=== PATIENT | female | born 2000 | race Caucasian/White ===

== ENCOUNTER 2024-12-28 08:49 | Outpatient (AMB) | payer MEDICAID, SELFPAY ==
--- NOTE | 2024-12-28 08:53 | AMB.OBINITIA ---
Vital Signs 12/28/24 09:01 Height 1.68 m Height Method Stated Weight 111.697 kg Weight Measurement Method Standing Scale BMI 39.7 BP 131/85 H Blood Pressure Source Automatic Cuff Blood Pressure Location Left Upper Arm Position Sitting Respiration 18 Pulse 90 Pulse Source Monitor Temp 97.2 F Temp Source Oral Pulse Oximetry (%) 97 Oxygen Delivery Method Room Air Allergies/Home Meds Allergies & Medications Allergies latex Allergy (Verified 12/28/24 09:02) SKIN REACTIONS Medication Reconciliation ibuprofen 600 mg tablet 600 mg PO TID PRN pain #30 tabs 10/31/22 [Rx Confirmed 12/28/24] vitamin-ferrous fumarate 28 mg iron-folic acid 800 mcg tablet ( Vitamins with Minerals) 1 tab PO QDAY #60 tabs 12/28/24 [Rx] Intake Visit Data Collection New Patient or Established: Established Patient (seen at [facility] within 3 years) Reason for Visit:: obc Seen by Clinical Staff ONLY (RN/MA): No Youth Care Specialist Required: No Do You Feel Safe at Home: Yes Authorities Contacted: N/A PCP or OBGYN visit in last 3 months: Yes Hx Now: Yes Are you currently on any form of Control: No Last menstrual period: 09/13/24 Pain Present Currently: No Pain Scale Used: Lameida-Kam/Numerical Pain scale:: 0 Smoking Status Smoking Status: Current every day smoker Cessation Counseling Provided: ROMULO was advised that quitting smoking is the single most important factor to protect the health of themselves and their family. Discussed the benefits of quitting smoking with patient. Encouraged patient to quit smoking and provided Cessation assistance materials and resources. Tobacco Use: Cigarette Years smoked: 3 Are you interested in Quitting?: No Immunizations Flu Vaccine in the Last 12 Months: No Flu Vaccine Exclusion Criteria: No Exclusion Criteria Questionnaires Covid-19 Vaccine Questionnaire Has patient been vacinated for Covid-19 Have you been vacinated for Covid-19: Yes PHQ-9 PHQ-2 Over the last 2 weeks, how often have you been bothered by any of the following problems? 1. Little interest or pleasure in doing things: not at all 2. Feeling down, depressed, or hopeless: not at all Total score: 0 PHQ-9 3. Trouble falling or staying asleep, or sleeping too much: Not at all 4. Feeling tired or having little energy: Not at all 5. Poor appetite or overeating: Not at all 6. Feeling bad about yourself - or that you are a failure or have let yourself or your family down: Not at all 7. Trouble concentrating on things, such as reading the newspaper or watching television: Not at all 8. Moving or speaking so slowly that other people could have noticed? - Or the opposite - being so fidgety or restless that you have been moving around a lot more than usual: not at all 9. Thoughts that you would be better off or of hurting yourself in some way: Not at all Total score: 0 If you checked off any problems, how difficult have these problems made it for you to do your work, take care of things at home, or get along with other people?: not difficult at all Source: Developed by Drs. Caleb Hudson, Kari Quiroga, Denver Matias and colleagues, with an educational joan from [employer]. Depression screen completed yes Social History Living Situation History Marital Status: Single Lives With: Family Housing: House Tobacco History Smoking Status: Current every day smoker Second Hand Smoke Exposure: No Alcohol History Alcohol Intake: Never Domestic Abuse History Do You Feel Safe at Home: Yes History of Present Illness HPI Narrative 24-year-old 1 para 0 admitted for OBI. Unplanned but patient and partner are happy. Patient has a history of irregular menses. She removed her Nexplanon in September. Last period September 13, 2024. By that last. She is due June 21, 2025. However patient had an ultrasound at [facility] for cramping on November 15, 2024 okay. Baby was 5 weeks and 2 days. Changing EDC to July 16, 2025. Denies any leaking bleeding and cramping. She has no nausea or first trimester discomforts. Patient reports that she has a history of hypothyroid however her PCP did not feel she needed medication so she has not been treated for that. Denies social habits. 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 Patient has a history of irregular.'s. She has been using Nexplanon for over 6 years. Her last. Was September 13, 2024. However patient had an ultrasound November 15, 2024. Patient was 5 weeks 04/15. And this changed to EDC to July 16, 2025. Denies leaking, bleeding, nausea or contractions. Patient reports she had a history of hypothyroid but she has not been on any medication. Denies social habits. Denies surgeries. OBI today. Reviewed dates. Schedule MFM sono with Dr. Sanders. OB panel today with TSH, A1c. And OB panel. Discussed SAB precautions. Refill prenatals. Return in 4 weeks OB check Menstrual History Menstrual reliability: definite Flow: normal Menstrual regularity: irregular Monthly: Yes Age at menarche: 12 On control pills at conception: No OB History : 1 Para: 0 Hx # Pregnancies: 0 Hx Total # of Abortions (Spontaneous & Elective): 0 # of Living Children: 0 Infection History & Risk Evaluation History of STDs: none HIV risk evaluation: low risk Hepatitis B risk evaluation: low risk Patient or partner has history of Genital Herpes: No Varicella/chicken pox status: immunized Genetic Screening & History Genetic Screening/Teratology Counseling - Includes patient, baby's father, or anyone in either family with: 1. Patient's age 35 years or older as of estimated date of delivery: No 2. Thalassemia (Wallisian, Burkinan, Mediterranean, or Background); MCV less than 80: No 3. Neural Tube Defect (Meningomyelocele, Spina Bifida, or Anencephaly): No 4. Congenital Heart Defect: No 5. Down Syndrome: No 6. Kwame-Sachs (Ashkenazi Roman Catholic, Cajun, Thai Ransom): No 7. Chuck Disease (Ashkenazi Roman Catholic): No 8. Familial Dysautonomia (Ashkenazi Roman Catholic): No 9. Sickle Cell Disease or Trait (): No 10. Hemophilia or other blood disorders: No 11. Muscular Dystrophy: No 12. Cystic Fibrosis: No 13. Yamhill's Chorea: No 14. Mental Retardation/Autism: No 15. Other inherited genetic or chromosomal disorder: No 16. Maternal Metabolic Disorder (EG,TYPE 1 Diabetes, PKU): No 17. Patient or baby's father had a child with defects not listed above: No 18. Recurrent loss or a stillbirth: No 19. Medications (including supplements, vitamins, herbs or otc drugs)/illicit/recreational drugs/alcohol since last menstrual period: No 20. Any other: No Infection History 1. Live with someone with TB or exposed to TB: No 2. Rash or viral illness since last menstrual period: No 3. Hepatitis B,C: No Other (see comments) Source: [employer] Review of Systems Review of Systems Systems Reviewed: All systems reviewed, normal except as documented Exam General Limitations: no limitations General Appearance: alert, in no apparent distress, comfortable, cooperative, healthy appearing, well developed and well groomed ENT ENT exam: Present normal exam, normal oropharynx and mucous membranes moist Neck Neck exam: Present normal inspection, full ROM and trachea midline Chest Chest inspection: Present normal inspection and symmetric chest wall rise Resp Respiratory exam: Present normal lung sounds bilaterally Card Cardiovascular exam: Present regular rate, normal rhythm and normal heart sounds Abdominal Abdominal exam: Present soft and normal bowel sounds Psych Psychiatric exam: Present normal affect and normal mood Office Procedures OBC Clinic LOC & Office Proc's Nursing/Assessment Patient Status: Established Patient OB Clinic Nursing Assessment: Medication Reconciliation, Update PMH in EMR and Vital Signs OB Clinic Coordination of Care: Consent,records obtained, informed consent, Education Simp Pt/Fam, Lab and Imaging orders, Results/Orders obtained and Staff clarify orders Special Needs: Heart tones Established Patient Charge Established Patient Point Assignment: 110 Established Patient Point Charge: EP Level 3 (80-115) Assessment & Plan Diagnosis / Problem List (1) Encounter for supervision of high risk in first trimester, antepartum: Status: Acute Plan OB panel today with NIPT, carrier screens, hemoglobin A1c and TSH and T4. Schedule for anatomy scan with Dr. Sanders's office. Discussed SAB precautions. Comfort measures. Refilled vitamins. And return in 4 weeks OB check Additional Plan Follow Up: 4 Weeks (obc)
[2024-12-28 09:01] VITALS: BP 131/85; PULSE 90; RESP 18; TEMP 36.2; O2SAT 97; BMI 39.7
== END 2024-12-28 09:33 | disposition home or self-care (01) ==
LOC: HODSOBC 08:49
PROVIDERS: PCP Family Medicine; Referring Provider Family Medicine; Supervising Provider Advanced Practice Midwife; Visit Provider Advanced Practice Midwife
DX: O09.891 Supervision of other high risk pregnancies, first trimester (principal); O99.281 Endocrine, nutritional and metabolic diseases complicating pregnancy, first trimester; E03.9 Hypothyroidism, unspecified; Z3A.11 11 weeks gestation of pregnancy; Z91.040 Latex allergy status
CPT/HCPCS: 99213; G0463

== ENCOUNTER 2025-01-16 12:26 | Emergency (ER) | payer MEDICAID, SELFPAY ==
[2025-01-16 12:28] VITALS: BMI 40.3
[2025-01-16 12:35] VITALS: BP 158/84; PULSE 101; RESP 16; TEMP 36.6; O2SAT 99
--- NOTE | 2025-01-16 12:36 | PC.NURSE ---
CHARGE NERSE INFORMED ABOUT PT'S SYMPTOMS AND +14 WKS
--- NOTE | 2025-01-16 12:53 | PC.NURSE ---
Pt. here from home to room 17, s/o at bedside, pt. states she is 14 weeks OB, pt. denies any vaginal bleeding or spotting, pt. states she is , pt. states she has had a migraine X 2 days. Pt. states she vomited X 1 when she was brushing her teeth, pt. states she took 2 hits of weed yesterday because nothing was working to take away her BOLANOS, pt. states she's grateful that she got so she could stop vaping. Pt. states she has never had high blood pressure before. Pt. states a couple times she has had blurry vision.
[2025-01-16 13:28] VITALS: BP 128/70; PULSE 79; RESP 19; TEMP 36.6; O2SAT 97
--- NOTE | 2025-01-16 13:48 | EDNOTE_ITS ---
<Statement entered by Sona Vázquez MD - 01/16/25 17:57> As co-signing physician, I was present and available for consult prn. I concur with the plan and care as documented by the midlevel provider. ED General RME/HPI General Chief complaint: Headache Stated complaint: BOLANOS x 3 D,DIZZY/BLURRED VISION x2D, 14 WEEKS PREG Time Seen by Provider: 01/16/25 13:27 Arrival date/time: 01/16/25 12:26 CC: Headache HPI patient for the past 3 days has had a frontal headache that rates up through the top of her head, is not relieved with Tylenol. Patient also states she has light sensitivity noise sensitivity but no nausea or vomiting no prior history of similar events. The patient is a G1, P0 at 14 weeks denies any vaginal bleeding vaginal discharge. Currently the headache is a 6 on a 10 scale. The patient is not insisting on turning the lights off, the patient is not wearing sunglasses. Related Data Previous Rx's ?Medication ?Instructions ?Recorded ibuprofen 600 mg tablet 600 mg PO TID PRN pain #30 t abs 10/31/22 vitamin-ferrous fumarate 1 tab PO QDAY #60 ta bs 12/28/24 28 mg iron-folic acid 800 mcg tablet ( Vitamins with Minerals) Allergies Allergy/AdvReac Type Severity Reaction Status Date / Time latex Allergy Severe SKIN Verified 01/16/25 12:30 REACTIONS Review of Systems Review of Systems Narrative Review of Systems: GEN: No fever, no chills, no weight loss EYES: No discharge, no visual changes, no pain HEENT: No ear pain, no congestion, no sore throat PULM: No shortness of breath, no cough, no congestion CV: No chest pain, no dyspnea on exertion, no palpitations GI: No nausea, no vomiting, no diarrhea, no pain, no constipation : No frequency, no urgency, no dysuria MUSC/SKEL: No joint pain, no back pain SKIN: No rash PSYCH: No hallucinations, no depression HEME/LYMPH: No easy bleeding or bruising tendencies NEURO: No weakness, + headache Past Medical History Past Medical History CARDIAC: Negative Congestive Heart Failure RESPIRATORY: Positive Chronic Obstructive Pulmonary Disease (COPD) GENITOURINARY: Negative Renal Disease ENDOCRINE: Negative Diabetes Mellitus Type 1 or Diabetes Mellitus Type 2 Social History SMOKING STATUS: Never smoker SECOND HAND EXPOSURE: No SUBSTANCE USE: marijuana (Occasionally) ED Exam Narrative Physical exam: [General: Morbidly obese not in any acute distress Head normocephalic HEENT: Eyes: Pupils are PERRLA EOMs are intact mouth pink moist membranes uvula is midline swallow symmetrical phonation is normal. Within acceptable limits Neck is supple nontender Chest equal chest rise nontender to palpation Respiratory: Clear to auscultation no wheezes crackles or rubs CV: Rate rhythm is regular no murmurs rubs or clicks Abdomen is distended secondary to body habitus soft nontender no masses positive bowel sounds all 4 quadrants Back: No CVA tenderness no spinous process tenderness from cervical spine thoracic and lumbar spine Skin: Intact no petechiae rash induration ulceration or crepitus Extremities: Moving all extremity against resistance cap refill less than 2 seco nds neurosensory intact Neuro: Awake alert oriented x3 Glascow coma 15 no focal deficits] Course Course Course Narrative: Ultrasound IUP is clearly visible heart rate in the 140s to 150s good variability. Reassessment at 1500 the headache is improving. At 1314 and headache is significantly improved patient wants to go home I am comfortable with this plan. Quality Measures none Orders Category Date Time Status Urinalysis Stat Lab 01/16/25 14:47 Completed DiphenhydrAMINE INJ [Benadryl Inj] Med 01/16/25 13:46 Discontinued 25 mg IM X1 ONE Metoclopramide Inj [Reglan Inj] Med 01/16/25 13:46 Discontinued 10 mg IM X1 ONE Vital Signs Vital signs: Vital Signs Temperature 98 F 01/16/25 12:35 Pulse Rate 101 H 01/16/25 12:35 Respiratory Rate 16 01/16/25 12:35 Blood Pressure 158/84 H 01/16/25 12:35 Pulse Oximetry (%) 99 01/16/25 12:35 Oxygen Delivery Method Room Air 01/16/25 12:35 Discharge Plan Plan Patient Disposition: HOME (Self Care) Patient condition on transfer: Stable Prescriptions/Referrals Prescriptions/Med Rec: No Action vit-iron fum-folic ac [ Vitamin with Minerals] 28 mg iron- 800 mcg tablet 1 tab PO QDAY Qty: 60 3RF ibuprofen 600 mg tablet 600 mg PO TID PRN (Reason: pain) Qty: 30 0RF Referrals: Danna Kam PA-C [Primary Care Provider] - In 1 week Problem List Clinical Impression: Headache, Patient/Caregiver Discharge Instructions Additional Instructions: Continue use Tylenol for headaches, if there is a episode in which there is no relief with Tylenol consider talking to your INSOLE REINFORCER for medications. Print Language: Upper Sorbian Stand Alone Forms: Tereza Award Info., Work/School Release, Patient Portal Info Letter ARI/MARVEL Supervising Physician ARI/MARVEL Supervising Physician: Vadim Keller ENP [facility] Clinical Information Provided by: patient Medical Records reviewed [facility] Meds/Rx considered, not ordered None Labs/Rad/Tests considered, not ordered None Chronic Illness/Social Conditions Explain: is EKG EKG not done Medication Administration(s) Medication Administration History Discontinued Medications Diphenhydramine HCl (Diphenhydramine Inj 50 Mg/Ml Vial) 25 mg IM X1 ONE Stop: 01/16/25 13:47 Last Admin: 01/16/25 14:18 Dose: 25 mg Documented By: ED Metoclopramide HCl (Metoclopramide Inj 5 Mg/Ml Vial 2 Ml) 10 mg IM X1 ONE; Protocol Stop: 01/16/25 13:47 Last Admin: 01/16/25 14:24 Dose: 10 mg Documented By: ED
[2025-01-16 14:20] VITALS: BP 116/65; PULSE 100; RESP 18; TEMP 37; O2SAT 99
[2025-01-16] MEDS: METOCLOPRAMIDE INJ 5 MG/ML VIAL 2 ML 10 MG IM (14:24)
[2025-01-16 14:56] LABS: Collection Type, Urine Clean Catch; RBC,Urine 0 /hpf (0-3)
[2025-01-16 15:07] LABS: Bacteria,Urine 2+; Bilirubin,Urine Negative (Negative); Blood,Urine Negative (Negative); Clarity,Urine Clear (Clear/Hazy); Color,Urine Colorless (Lt Yel-Yel); Glucose, Urine Negative (Negative); Ketones,Urine Negative (Negative); Leukocyte Esterase,Urine Negative (Negative); Nitrite,Urine Negative (Negative); PH,Urine 6.5 (5.0-7.0); Protein,Urine Negative (Neg - Trace); Specific Gravity,Urine 1.004 (1.001-1.035); Squamous Epithelial Cell,Urine 3 /hpf (0-5); Urobilinogen,Urine Negative mg/dL (0.0-1.0); WBC,Urine 1 /hpf (0-5)
[2025-01-16 16:01] VITALS: BP 133/71; PULSE 82; RESP 18; O2SAT 98
== END 2025-01-16 16:02 | disposition home or self-care (01) ==
PROVIDERS: Registered Nurse General Practice; Emergency Provider Emergency Medicine; PCP Physician Assistant Medical
DX: O26.892 Other specified pregnancy related conditions, second trimester (principal); Z3A.14 14 weeks gestation of pregnancy
CPT/HCPCS: 81001; 96372; 99282; J1200; J2765

== ENCOUNTER 2025-01-25 09:16 | Outpatient (AMB) | payer MEDICAID, SELFPAY ==
[2025-01-25 09:25] VITALS: BP 129/78; PULSE 90; RESP 18; TEMP 36.6; O2SAT 98; BMI 41.1
--- NOTE | 2025-01-25 09:25 | OBCLNT_ITS ---
Vital Signs 01/25/25 09:25 Height 1.68 m Height Method Stated Weight 116.233 kg Weight Measurement Method Standing Scale BMI 41.1 BP 129/78 Blood Pressure Source Automatic Cuff Blood Pressure Location Right Upper Arm Position Sitting Respiration 18 Pulse 90 Pulse Source Monitor Temp 97.8 F Temp Source Temporal Artery Scan Pulse Oximetry (%) 98 Oxygen Delivery Method Room Air Allergies/Home Meds Allergies & Medications Allergies latex Allergy (Severe, Verified 01/25/25 09:26) SKIN REACTIONS Medication Reconciliation ibuprofen 600 mg tablet 600 mg PO TID PRN pain #30 tabs 10/31/22 [Rx Confirmed 01/25/25] vitamin-ferrous fumarate 28 mg iron-folic acid 800 mcg tablet ( Vitamins with Minerals) 1 tab PO QDAY #60 tabs 12/28/24 [Rx Confirmed 01/25/25] Immunizations Immunizations Flu Vaccine in the Last 12 Months: No Flu Vaccine Exclusion Criteria: No Exclusion Criteria Care OB Visit Log OB Flowsheet Initial Weight: Not Recorded Date -?-?-?-?-?-?-?-?-?-?-?-?- EGA Weight BP Alb Glu CTX Pres Fundal ht FHR Mov Dilation Station Effacement Hx Notes Visit Note 12/28/24 -?-?-?-?-?-?-?-?-?-?-?-?- 11w 3d 111.697 kg 131/85 absent unknown 11 147 absent 24-year-old 1 para 0 for OBI. Patient has a history of irregular.'s. She has been using Nexplanon for over 6 years. Her last. Was September 13, 2024. However patient had an ultrasound November 15, 2024. Patient was 5 weeks 04/15. And this changed to EDC to July 16, 2025. Denies leaking, bleeding, nausea or contractions. Patient reports she had a history of hypothyroid but she has not been on any medication. Denies social habits. Denies surgeries. OBI today. Reviewed dates. Schedule MFM sono with Dr. Sanders. OB panel today with TSH, A1c. And OB panel. Discussed SAB precautions. Refill prenatals. Return in 4 weeks OB check 01/25/25 -?-?-?-?-?-?-?-?-?-?-?-?- 15w 3d 116.233 kg 129/78 absent unknown 15 145 absent Light movement. Denies leaking, bleeding, contractions. Previous history of diagnosed with a positive TSH but no meds aFP tod ay. [facility] appointment for ultrasound with Dr. Sanders's is pending. Discussed SAB precautions CARMEN Calculator Estimated Delivery Date Method Current WG Current Estimate 07/16/25 Ultrasound #1 15w 3d Other Estimates 06/20/25 LMP (Uncertain) 19w 1d 07/16/25 Manual 15w 3d final carmen: 07/16, irreg menses Notes Visit Date: 01/25/25 Last Updated by: Caryl Buitrago CNM OB panel: A+,abs-,rpr;;nr, rub imm, HBSAG-,HIV-, GC/CT-, , HC-. UA-, NIPT-/girl, SMA-,CF-A1c:4.8, T4: wnl, TSH: 5.13( sub clinical). No meds for now Visit Date: 12/28/24 Last Updated by: Caryl Buitrago CNM 24 yo . irreg menses. lmp 09/13/24. 1st sono: 11/15/24: 5w2. edc: 07/16/25 Office Procedures OBC Clinic LOC & Office Proc's Nursing/Assessment Patient Status: Established Patient OB Clinic Nursing Assessment: Medication Reconciliation, Update PMH in EMR and Vital Signs OB Clinic Coordination of Care: Complex Care and Chronic Disease 1-5, Education Complex Pt/Fam, Consent,records obtained, informed consent, Lab and Imaging orders, Results/Orders obtained and Staff clarify orders Special Needs: Heart tones Established Patient Charge Established Patient Point Assignment: 140 Established Patient Point Charge: EP Level 4 (120-155) Assessment & Plan Diagnosis / Problem List (1) Encounter for supervision of high risk in second trimester, antepartum: Status: Acute Plan aFP today. Discussed labs and TSH. TSH is subclinical so we will follow-up with third trimester labs. Discussed SAB precautions. And maternal- medicine sono is pending with Dr. Sanders Additional Plan Follow Up: 4 Weeks (obc)
== END 2025-01-25 10:06 | disposition home or self-care (01) ==
LOC: HODSOBC 09:16
PROVIDERS: Supervising Provider Advanced Practice Midwife; Visit Provider Advanced Practice Midwife
DX: O09.92 Supervision of high risk pregnancy, unspecified, second trimester (principal); Z3A.15 15 weeks gestation of pregnancy; Z91.040 Latex allergy status
CPT/HCPCS: 99214; G0463

== ENCOUNTER 2025-02-22 09:02 | Outpatient (AMB) | payer MEDICAID, SELFPAY ==
[2025-02-22 09:24] VITALS: PULSE 94; RESP 18; TEMP 36.5; O2SAT 97; BMI 42.0
--- NOTE | 2025-02-22 09:24 | OBCLNT_ITS ---
Vital Signs 02/22/25 09:24 Height 1.68 m Height Method Stated Weight 118.841 kg Weight Measurement Method Standing Scale BMI 42.0 Blood Pressure Source Automatic Cuff Blood Pressure Location Left Upper Arm Position Sitting Respiration 18 Pulse 94 Pulse Source Monitor Temp 97.7 F Temp Source Oral Pulse Oximetry (%) 97 Oxygen Delivery Method Room Air Allergies/Home Meds Allergies & Medications Allergies latex Allergy (Severe, Verified 02/22/25 09:25) SKIN REACTIONS Medication Reconciliation vitamin-ferrous fumarate 28 mg iron-folic acid 800 mcg tablet ( Vitamins with Minerals) 1 tab PO QDAY #60 tabs 12/28/24 [Rx Confirmed 02/22/25] Immunizations Immunizations Flu Vaccine in the Last 12 Months: Yes Flu Vaccine Exclusion Criteria: Already Received Care OB Visit Log OB Flowsheet Initial Weight: Not Recorded Date -?-?-?-?-?-?-?-?-?-?-?-?- EGA Weight BP Alb Glu CTX Pres Fundal ht FHR Mov Dilation Station Effacement Hx Notes Visit Note 12/28/24 -?-?-?-?-?-?-?-?-?-?-?-?- 11w 3d 111.697 kg 131/85 absent unknown 11 147 absent 24-year-old 1 para 0 for OBI. Patient has a history of irregular.'s. She has been using Nexplanon for over 6 years. Her last. Was September 13, 2024. However patient had an ultrasound November 15, 2024. Patient was 5 weeks 2/7. And this changed to EDC to July 16, 2025. Denies leaking, bleeding, nausea or contractions. Patient reports she had a history of hypothyroid but she has not been on any medication. Denies social habits. Denies surgeries. OBI today. Reviewed dates. Schedule MFM sono with Dr. Sanders. OB panel today with TSH, A1c. And OB panel. Discussed SAB precautions. Refill prenatals. Return in 4 weeks OB check 01/25/25 -?-?-?-?-?-?-?-?-?-?-?-?- 15w 3d 116.233 kg 129/78 absent unknown 15 145 absent Light movement. Denies leaking, bleeding, contractions. Previous history of diagnosed with a positive TSH but no meds aFP tod ay. [facility] appointment for ultrasound with Dr. Sanders's is pending. Discussed SAB precautions 02/22/25 -?-?-?-?-?-?-?-?-?-?-?-?- 19w 3d 118.841 kg absent unknown 19 158 ac tive ER visit at [facility] 02/13. Patient was seen for migraines. She reports feeling better now she had IV hydration and Tylenol including emesis. I looked at the labs on her phone and her liver platelets CBC were all. Electrolytes normal. She had a ultrasound on February 13 that showed an 18-week 2 baby which coincides with her dates. No migraine at this time. Patient had maternal- medicine appointment February 28 Discussed comfor t measures for migraines. Continue Tylenol or Tylenol PM. Increase fluids. Increase proteins. Keep appointment for maternal- medicine February 28. Daquan did do third trimester labs with thyroid labs next visit PIHL Calculator Estimated Delivery Date Method Current WG Current Estimate 07/16/25 Ultrasound #1 19w 3d Other Estimates 06/20/25 LMP (Uncertain) 23w 1d 07/16/25 Manual 19w 3d final phil: 07/16, irreg menses Notes Visit Date: 02/22/25 Last Updated by: Caryl Buitrago CNM AFP- Visit Date: 01/25/25 Last Updated by: Caryl Buitrago CNM OB panel: A+,abs-,rpr;;nr, rub imm, HBSAG-,HIV-, GC/CT-, , HC-. UA-, NIPT-/girl, SMA-,CF-A1c:4.8, T4: wnl, TSH: 5.13( sub clinical). No meds for now Visit Date: 12/28/24 Last Updated by: Caryl Buitrago CNM 24 yo . irreg menses. lmp 09/13/24. 1st sono: 11/15/24: 5w2. edc: 07/16/25 Office Procedures OBC Clinic LOC & Office Proc's Nursing/Assessment Patient Status: Established Patient OB Clinic Nursing Assessment: Medication Reconciliation, Update PMH in EMR and Vital Signs OB Clinic Coordination of Care: Complex Care and Chronic Disease 1-5, Consent,records obtained, informed consent, Education Simp Pt/Fam, 1 Ins A uthorization, Lab and Imaging orders, Results/Orders obtained and Staff clarify orders Special Needs: Heart tones Established Patient Charge Established Patient Point Assignment: 150 Established Patient Point Charge: EP Level 4 (120-155) Assessment & Plan Diagnosis / Problem List (1) Encounter for supervision of high risk in second trimester, antepartum: Status: Acute Plan Third trimester labs and thyroid panel next visit. Discussed labor precautions. Comfort measures for migraines and increase proteins and fluids. Return in 4 weeks OB check Additional Plan Follow Up: 4 Weeks (obc)
== END 2025-02-22 10:05 | disposition home or self-care (01) ==
PROVIDERS: Supervising Provider Advanced Practice Midwife; Visit Provider Advanced Practice Midwife
DX: O09.892 Supervision of other high risk pregnancies, second trimester (principal); O99.352 Diseases of the nervous system complicating pregnancy, second trimester; G43.909 Migraine, unspecified, not intractable, without status migrainosus; Z3A.19 19 weeks gestation of pregnancy; Z91.040 Latex allergy status
CPT/HCPCS: 99214; G0463